=== PATIENT | female | born 1985 | race Caucasian/White ===

== ENCOUNTER 2019-09-17 00:01 | Inpatient (IN) ==
[2019-09-17] MEDS ORDERED: MISOPROSTOL 100 MCG TABLET VG PRN (00:14)
[2019-09-17] MEDS ORDERED: DEXTROSE 5%-LACTATED RINGERS 1,000 ML IV PRN (00:14)
[2019-09-17] MEDS ORDERED: OXYTOCIN/DEXTROSE 5%-WATER 30 UNITS/500 ML BAG IV ONE ×2 (00:14→17:00)
[2019-09-17] MEDS ORDERED: ONDANSETRON 4 MG TAB.RAPDIS PO PRN (00:14)
[2019-09-17] MEDS ORDERED: LIDOCAINE HCL 50 ML VIAL PERI PRN (00:14)
[2019-09-17 01:03] LABS: Cocaine Ur Negative (NEGATIVE); Urine Barbiturate Negative (NEGATIVE); Urine Benzodiazepines Negative (NEGATIVE); Urine Opiates Negative (NEGATIVE); Urine PCP Negative (NEGATIVE); Urine THC Negative (NEGATIVE)
--- NOTE | 2019-09-17 09:09 | HP ---
Chief Complaint - Chief Complaint Date of Service: 09/17/19 Time of Service: 09:02 Chief Complaint: elective induction of labor History of Present Illness: 34 yo at 40 1/7 weeks presents to L&D for elective induction of labor. This complicated by asthma and obesity. Rh positive Rubella immune GBS negative Medical History (Last Reviewed 09/17/19 @ 09:05 by Damon Plunkett DO) Asthma (Chronic) Onset Date: Unknown no hospitalizations Body piercing Onset Date: Unknown Surgical History: Surgical History (Last Reviewed 09/17/19 @ 09:05 by Damon Plunkett DO) History of adenoidectomy Onset Date: ~1996 Status post myringotomy with insertion of tube Onset Date: ~1996 Family History: Family History (Last Reviewed 09/17/19 @ 09:05 by Daomn Plunkett DO) Mother Hypertension Hypothyroidism Father Alive and well Grandfather Parkinson's disease Grandmother Parkinson's disease Social History: (Last Reviewed 09/17/19 @ 09:05 by Damon Plunkett DO) Social History: adopted: No longterm: No Marital status: household members: spouse, children number of children: 1 current occupational status: employed 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 current occupational exposures/hazards: No Highest education level completed: some college, no degree Sexually Active: Yes Service: No Tobacco: Smoking Status: Never smoker Alcohol: alcohol intake: former alcohol intake frequency: a few times a month Substance Use: substance use type: does not use Dietary Habits: caffeine: Yes caffeine comment: 3/week Exercise: frequency: 1-2 times per week Review Of Systems (GEN) - Review of Systems Generalized/Overall Review: Present: No Symptoms Reported EENTM: Present: No Symptoms Reported Respiratory: Present: No Symptoms Reported Cardiac: Present: No Symptoms Reported Abdominal: Present: No Symptoms Reported Genitourinary: Present: No Symptoms Reported Musculoskeletal: Present: No Symptoms Reported Neurological: Present: No Symptoms Reported Skin: Present: No Symptoms Reported Endocrine: Present: No Symptoms Reported Allergies/Adverse Reactions: Allergies Allergy/AdvReac Type Severity Reaction Status Date / Time No Known Allergies Allergy Verified 09/17/19 00:10 Home Medications: HOME MEDICATIONS acetaminophen 325 mg tablet 325 mg PO Q6H PRN 09/02/18 [Last Taken Unknown] PNV 153-FA 400 mcg-om3 35 mg-dha 25 mg-epa 5 mg-fish oil chew tablet 1 tab PO DAILY tab 02/09/19 [Last Taken 09/16/19 08:00] cetirizine 10 mg tablet 10 mg PO DAILY #30 tab 06/08/19 [Last Taken 09/16/19 18:00] lansoprazole 30 mg capsule,delayed release 30 mg PO DAILY 08/10/19 [Last Taken 09/16/19 08:00] breast pump See Rx Instructions .ROUTE .MEDSUPPLY #1 ea 09/01/19 [Last Taken Unknown] Exam - Exam Vital Signs: Vital Signs - Last Taken Temp 36.3 C 09/17/19 00:43 Pulse 87 09/17/19 00:43 Resp 20 09/17/19 00:43 BP 104/61 09/17/19 00:43 Pulse Ox 97 09/17/19 00:43 Constitutional: Present: Alert, Oriented x3, Cooperative ENT Exam: Present: hearing grossly normal Breasts: Present: Exam deferred Respiratory: Present: lungs clear, no respiratory distress Cardiovascular/Chest: Present: regular rate, rhythm Abdomen: Present: soft, nontender, no rebound tenderness, other - Gravid /Rectal: Present: Other - Cervix - 1-2/50/-3 Extremity: Present: no pedal edema, no calf tenderness Skin Exam: Present: normal color, warm/dry, no cyanosis Neurologic: Present: alert, normal mood/affect, oriented x 3 Appearance: Present: appropriate appearance, appropriate insight Eye contact: Present: cooperative, good eye contact Thoughts: Present: normal thought pattern, normal mood /affect Diagnostic Studies: Laboratory Results Urine Opiates Screen Negative (NEGATIVE) 09/17/19 00:42 Barbiturate Screen Negative (NEGATIVE) 09/17/19 00:42 Ur Phencyclidine Scrn Negative (NEGATIVE) 09/17/19 00:42 Urine Amphetamine Negative (NEGATIVE) 09/17/19 00:42 U Benzodiazepines Scrn Negative (NEGATIVE) 09/17/19 00:42 Urine Cocaine Screen Negative (NEGATIVE) 09/17/19 00:42 Urine Marijuana (THC) Negative (NEGATIVE) 09/17/19 00:42 Non Stress Test - Status NST: 09/17/19 Reason for NST: other - admission for induction of labor Monitor Mode: External Acceleration: Present Decelerations: None Variability: Moderate 6-25 bpm Baseline Heart Rate: 130 Activity: reactive Reactive: 15 by 15 - Assessment NST Assessment: other - Reactive tracing. Ok to start induction of labor. - Plan NST Plan: Admit to L&D
--- NOTE | 2019-09-17 09:14 | PN ---
Progess Note - Interim Date: 09/17/19 Time: 09:12 Narrative: 09/17/19 09:13 Patient starting to read her contractions as moderate Vital signs stable. Pitocin at 8 mu/min. FHT: 130 baseline, reassuring contractions q 2-4 min Cervix: 2/70/-2 Impression: Intrauterine at 40 1/7 weeks. Elective induction of labor Plan: Continue present plan
[2019-09-17] MEDS: RINGER'S SOLUTION,LACTATED 1,000 ML IV ONE ×2 (10:56→11:40)
[2019-09-17] MEDS ORDERED: BUPIVACAINE HCL/0.9 % NACL/PF 250 ML EP PRN (10:57)
[2019-09-17] MEDS ORDERED: NALOXONE HCL 1 MG/1 ML SYRG IV PRN (10:57)
[2019-09-17] MEDS ORDERED: ONDANSETRON HCL/PF 2 MG/ML VIAL IV PRN (10:57)
[2019-09-17] MEDS ORDERED: BUPIVACAINE HCL/PF 30 ML VIAL EP SCH (11:00)
--- NOTE | 2019-09-17 11:49 | ANES ---
Anesthesia Pre Procedure Eval Vitals/Labs: Last Vital Signs Temp 36.7 C 09/17/19 11:10 Pulse 80 09/17/19 11:10 Resp 18 09/17/19 11:10 BP 108/59 09/17/19 11:10 Pulse Ox 99 09/17/19 11:10 HOME MEDICATIONS acetaminophen 325 mg tablet 325 mg PO Q6H PRN 09/02/18 [Last Taken Unknown] PNV 153-FA 400 mcg-om3 35 mg-dha 25 mg-epa 5 mg-fish oil chew tablet 1 tab PO DAILY tab 02/09/19 [Last Taken 09/16/19 08:00] cetirizine 10 mg tablet 10 mg PO DAILY #30 tab 06/08/19 [Last Taken 09/16/19 18:00] lansoprazole 30 mg capsule,delayed release 30 mg PO DAILY 08/10/19 [Last Taken 09/16/19 08:00] breast pump See Rx Instructions .ROUTE .MEDSUPPLY #1 ea 09/01/19 [Last Taken Unknown] Allergies/Adverse Reactions: Allergies Allergy/AdvReac Type Severity Reaction Status Date / Time No Known Allergies Allergy Verified 09/17/19 00:10 - Planned Procedure Planned Procedure: Labor epidural Medication List Reviewed:: Yes Allergies Verified: Yes Medical History (Last Reviewed 09/17/19 @ 11:48 by Wily Tapia CRNA) Asthma (Chronic) Onset Date: Unknown no hospitalizations Body piercing Onset Date: Unknown Surgical History (Last Reviewed 09/17/19 @ 11:48 by Wily Tapia CRNA) History of adenoidectomy Onset Date: ~1996 Status post myringotomy with insertion of tube Onset Date: ~1996 Family History (Last Reviewed 09/17/19 @ 11:48 by Wily Tapia CRNA) Mother Hypertension Hypothyroidism Father Alive and well Grandfather Parkinson's disease Grandmother Parkinson's disease - Anesthesia Assessment and Plan ASA Class: PS, II Anesthesia Type Plan: Epidural
--- NOTE | 2019-09-17 12:08 | ANES ---
Anesthesia Procedure Note Procedure Note: ANESTHESIA PROCEDURE NOTE Date of Procedure: 09/17/2019. Time of procedure: 1150. Performed by: Wily Tapia CRNA [employer] Hcm Developer: None. Preprocedure diagnosis: Active labor. Post procedure diagnosis: Same. Procedure: Insertion of labor epidural. Indications: The patient is a 34-year-old female in active labor requesting labor epidural for pain management. Findings: See below. Details of the procedure: The patient was placed in a sitting position. DuraPrep as well as Betadine swabs X3 was applied to the patient's back. Patient was then draped in a sterile fashion. Lidocaine 1% was infiltrated to the skin and subcutaneous tissues at the level of the L3-4 interspace. The epidural space was identified using a 18-gauge Tuohy needle with [id number] technique. Epidural catheter was inserted to a depth of 11 centimeters at skin. Negative test dose was elicited using 3 mL of 1.5% preservative-free lidocaine plus epinephrine 1 200,000. The epidural catheter was then taped and secured in place. A loading dose of 8 mL of 0.25% preservative-free bupivacaine was administered to the epidural catheter after negative aspiration for blood and CSF. EBL: Minimal. Fluids: N/A. Specimen: N/A. Post procedure condition: The patient tolerated the procedure well. No complications were noted. Thank you for this consultation. Wily Tapia CRNA
--- NOTE | 2019-09-17 12:09 | ANES ---
Post Anesthesia Assessment - Vital Signs Vitals: Last Vital Signs Temp 36.7 C 09/17/19 11:10 Pulse 80 09/17/19 11:10 Resp 18 09/17/19 11:10 BP 108/59 09/17/19 11:10 Pulse Ox 99 09/17/19 11:10 Airway Patency: Normal - Mental Status Level Of Consciousness: Awake - N/V Assessment Nausea/Vomiting Presence: None Dehydration:: No
--- NOTE | 2019-09-17 13:12 | PN ---
Progess Note - Interim Date: 09/17/19 Time: 13:11 Narrative: 09/17/19 13:11 Patient comfortable with epidural Vital signs stable. Pitocin at 10 mu/min. FHT: 130 baseline, reassuring contractions q 2-3 min Cervix: 3-4/70/-2, AROM-clear Impression: Intrauterine at 40 1/7 weeks. Elective induction of labor Plan: Continue present plan
--- NOTE | 2019-09-17 16:58 | OR ---
Operative Report - Dictated Report Narrative: Spontaneous vaginal delivery of vigorously crying viable male at 1623 on 09/17/2019 with Apgars 8 and 9, weighing 4132 g in OA presentation. Cord clamping delayed approximately 1 minute Placenta delivered complete, intact, with three vessel cord Estimated blood loss: 100 mL Anesthesia: Epidural Lacerations: Second-degree vaginal laceration (3 cm) repaired with 3-0 Vicryl Rapide History for MU History for Definition: * The number of deliveries resulting in a live the patient experienced prior to current hospitalization * The previous delivery of live twins or any live multiple gestation is considered one live event. *If primagravida or nulliparous is documented select zero for the number of previous live births. Live Events: Live Events: 1
[2019-09-17] MEDS ORDERED: BISACODYL 10 MG SUPP.RECT RC PRN (17:00)
[2019-09-17] MEDS ORDERED: IBUPROFEN 800 MG TABLET PO PRN ×2 (17:00)
[2019-09-17] MEDS ORDERED: HYDROCORTISONE 30 APPL TUBE TP PRN (17:00)
[2019-09-17] MEDS ORDERED: oxyCODONE HCL/ACETAMINOPHEN 1 TAB TABLET PO PRN (17:00)
[2019-09-17] MEDS ORDERED: NON-FORMULARY 1 DOSE DOSE (Breast Pump 0 UNIT) SCH (17:00)
[2019-09-17] MEDS ORDERED: SENNOSIDES 8.6 MG TABLET PO PRN (17:00)
[2019-09-17] MEDS ORDERED: BENZOCAINE/MENTHOL 81 SPRAY CAN TP PRN (17:00)
[2019-09-17] MEDS: GLYCERIN/WITCH HAZEL LEAF 40 APPL BOX TP PRN (17:06)
[2019-09-17] MEDS: DOCUSATE SODIUM 100 MG CAPSULE PO SCH (23:54)
[2019-09-18] MEDS: LORATADINE 10 MG TABLET PO SCH (08:24)
[2019-09-18] MEDS: DOCUSATE SODIUM 100 MG CAPSULE PO SCH ×2 (08:24→20:53)
[2019-09-18] MEDS: PRENATAL VITS96/IRON FUM/FOLIC 1 TAB TABLET PO SCH (08:25)
--- NOTE | 2019-09-18 12:31 | PN ---
Subjective - Date and Time Seen Date: 09/18/19 Time: 12:31 Objective - Vitals Vitals: Last Vital Signs Temp 36.9 C 09/18/19 06:34 Pulse 73 09/18/19 06:34 Resp 18 09/18/19 06:34 BP 100/58 09/18/19 06:34 Pulse Ox 98 09/18/19 06:34 Patient denies complaints. Breast-feeding well Lochia wnl abdomen - soft, nontender Uterus -firm, at umbilicus - 1 no calf tenderness Impression: day #1 - s/p spontaneous vaginal delivery. Plan: Continue routine care Cauti Physician Documentation - Urinary Catheter Management Urethral (Meza) Date of Insertion: 09/17/19 Time of Insertion: 12:50 Date of Removal: 09/17/19 Time of Removal: 15:15
[2019-09-18] MEDS: GLYCERIN/WITCH HAZEL LEAF 40 APPL BOX TP PRN (15:57)
[2019-09-19 08:21] VITALS: BP 103/57
[2019-09-19] MEDS: PRENATAL VITS96/IRON FUM/FOLIC 1 TAB TABLET PO SCH (08:42)
[2019-09-19] MEDS: DOCUSATE SODIUM 100 MG CAPSULE PO SCH (08:42)
[2019-09-19] MEDS: LORATADINE 10 MG TABLET PO SCH (08:42)
--- NOTE | 2019-09-19 11:53 | PN ---
Subjective - Date and Time Seen Date: 09/19/19 Time: 11:52 Objective - Vitals Vitals: Last Vital Signs Temp 36.2 C 09/19/19 07:30 Pulse 74 09/19/19 07:30 Resp 18 09/19/19 07:30 BP 103/57 09/19/19 07:30 Pulse Ox 100 09/19/19 07:30 Patient denies complaints. Breast-feeding well Lochia wnl abdomen - soft, nontender Uterus -firm, at umbilicus - 2 no calf tenderness Impression: day #2 - s/p spontaneous vaginal delivery. Plan: Routine discharge instructions Cauti Physician Documentation - Urinary Catheter Management Urethral (Meza) Date of Insertion: 09/17/19 Time of Insertion: 12:50 Date of Removal: 09/17/19 Time of Removal: 15:15
== END 2019-09-19 12:30 | disposition home or self-care (01) | DRG 807 ==
LOC: OB 00:01
PROVIDERS: ADMIT Obstetrics & Gynecology; ATTEND Obstetrics & Gynecology
CPT/HCPCS: 59025; 80307